=== PATIENT | male | born 1985 | race Two or more races ===

== ENCOUNTER 2018-12-11 15:36 | Emergency (ER) | payer OTHER ==
[~2018-12-11] VITALS: Ht 170.2 cm; Wt 75.0 kg
--- NOTE | 2018-12-11 16:05 | NUR ---
THIS IS A 33 YEAR MALE WHO C/O OF NAIL TO RIGHT LOWER THIGH, THE NAIL IS 3.25 INCHES PENITRATED WITH NO EXIT WOUND.
[2018-12-11] MEDS ORDERED: LIDOCAINE-MPF 1%, 5ML ONE ×4 (17:41→19:46)
[2018-12-11] MEDS ORDERED: DIPH,PERTUSS(ACELL),TET VAC/PF 0.5 ML IM-VACC ONE ×2 (17:42→19:00)
--- NOTE | 2018-12-11 18:24 | NUR ---
NAIL EXTRACTED BY PA, PT TOLERATED WELL, NAIL INTACT.
--- NOTE | 2018-12-11 19:07 | NUR ---
PT RESTING ON GURNEY, MONITORS IN PLACE, CALL LIGHT WITHIN REACH. 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
[2018-12-11] MEDS ORDERED: CEFAZOLIN 1,000 MG IM ONE (19:30)
[2018-12-11] MEDS ORDERED: CEFAZOLIN 1,000 MG ONE (19:31)
--- NOTE | 2018-12-11 19:40 | NUR ---
PT MEDICATED PER MAR
[2018-12-11] MEDS ORDERED: NEOSPORIN OINT. PKT 1 PACKET ONE (19:43)
[2018-12-11 19:51] VITALS: BP 103/66
--- NOTE | 2018-12-11 20:07 | NUR ---
OINTMENT AND BANDAID APPLIED TO RIGHT LEG WOUNDS
== END 2018-12-11 20:25 | disposition home or self-care (01) ==
LOC: ED 17:23
DX: S71.141A Puncture wound with foreign body, right thigh, initial encounter (principal); X58.XXXA Exposure to other specified factors, initial encounter; Y93.89 Activity, other specified; Y92.89 Other specified places as the place of occurrence of the external cause; Y99.8 Other external cause status
CPT/HCPCS: 10120; 73552; 90471; 90715; 96372; 99284; J0690